=== PATIENT | male | born 1965 | race Caucasian/White ===

== ENCOUNTER → 2018-08-07 | Outpatient (CLI) | payer MEDICARE ==
[~2018-08-07] MED LIST: ALBU18HF2 IH; BUDE10.2 IH; CEPH500T PO; DOCU100C36 PO; GABA-534 PO; GABA600T12 PO; LISI-603 PO; PRAV40TA3 PO; SULF1TAB47 PO; VENL150C58 PO
== END | disposition home or self-care (01) ==
LOC: MSC 14:00
PROVIDERS: ATTEND Anesthesiology
DX: G89.4 Chronic pain syndrome (principal); M16.9 Osteoarthritis of hip, unspecified; M46.96 Unspecified inflammatory spondylopathy, lumbar region; M47.27 Other spondylosis with radiculopathy, lumbosacral region; M79.669 Pain in unspecified lower leg; M62.830 Muscle spasm of back; M54.9 Dorsalgia, unspecified; M43.9 Deforming dorsopathy, unspecified; Z99.3 Dependence on wheelchair; Z79.891 Long term (current) use of opiate analgesic